=== PATIENT | male | born 1975 | race Two or more races ===

== ENCOUNTER 2024-06-06 12:46 | Emergency (ER) | payer OTHER ==
[2024-06-06] MEDS ORDERED: Acetaminophen 500 MG Tab PO PRN (12:48)
[2024-06-06] MEDS: Lidocaine 1% with EPINEPHrine 1:100,000 10 ML MDV INFILT ONE (12:49)
[2024-06-06] MEDS: Diphtheria,Pertussis(Acell),Tetanus Vaccine 0.5 ML Syringe IM ONE (12:59)
[2024-06-06] MEDS: Bacitracin Oint 1 GM U/D Packet TOP ONE (13:44)
== END 2024-06-06 14:57 | disposition home or self-care (01) ==
LOC: MW.ED 12:46
DX: S02.5XXA Fracture of tooth (traumatic), initial encounter for closed fracture (principal); S01.111A Laceration without foreign body of right eyelid and periocular area, initial encounter; S05.11XA Contusion of eyeball and orbital tissues, right eye, initial encounter; Z79.899 Other long term (current) drug therapy; V49.49XA Driver injured in collision with other motor vehicles in traffic accident, initial encounter; Z23 Encounter for immunization
CPT/HCPCS: 12013; 70450; 70450-26; 70486; 70486-26; 90471; 90715; 99283; 99283-25